=== PATIENT | female | born 1955 | race Caucasian/White ===

== ENCOUNTER 2017-12-26 16:49 | Emergency (ER) | payer OTHER ==
[~2017-12-26] VITALS: Ht 157.5 cm; Wt 65.8 kg
[2017-12-26] MEDS ORDERED: SINGULAIR10 MG PO (17:11)
[2017-12-26] MEDS ORDERED: LISINOPRIL10 MG PO (17:11)
[2017-12-26] MEDS ORDERED: OMEPRAZOLE20 MG PO (17:11)
[2017-12-26] MEDS ORDERED: LEVAQUIN500 MG PO (18:22)
== END 2017-12-26 18:28 | disposition home or self-care (01) ==
LOC: ED 16:49
DX: N39.0 Urinary tract infection, site not specified (principal); Z88.5 Allergy status to narcotic agent; Z79.899 Other long term (current) drug therapy
CPT/HCPCS: 81001; 99284